=== PATIENT | female | born 1980 | race African-American/Black ===

== ENCOUNTER 2017-01-01 10:56 | Emergency (ER) | payer MEDICAID, OTHER ==
[~2017-01-01] VITALS: Ht 167.6 cm; Wt 100.0 kg
[2017-01-01 14:05] VITALS: BP 120/85
== END 2017-01-01 15:32 | disposition home or self-care (01) ==
LOC: ER 11:48
DX: J02.9 Acute pharyngitis, unspecified (principal)
CPT/HCPCS: 99283

== ENCOUNTER 2017-11-19 11:46 | Emergency (ER) | payer SELFPAY ==
[~2017-11-19] VITALS: Ht 165.1 cm; Wt 100.0 kg
[2017-11-19] MEDS ORDERED: IBUPROFEN 600MG TABLET PO ONE (14:00)
[2017-11-19 15:46] VITALS: BP 120/79
== END 2017-11-19 15:46 | disposition home or self-care (01) ==
LOC: ER 11:46
DX: R07.0 Pain in throat (principal); H92.03 Otalgia, bilateral; R50.9 Fever, unspecified
CPT/HCPCS: 87070; 87430; 99284